=== PATIENT | female | born 1945 | race Caucasian/White ===

== ENCOUNTER → 2024-02-12 13:58 | Outpatient (REF) | payer MEDICARE, SELFPAY | LOC: WDC 13:58 | PROVIDERS: ATTENDING PHYSICIAN Family Medicine | DX: Z12.31 Encounter for screening mammogram for malignant neoplasm of breast (principal) | CPT/HCPCS: 77063; 77067 ==

== ENCOUNTER → 2025-03-16 13:36 | Outpatient (REF) | payer MEDICARE, SELFPAY | LOC: WDC 13:36 | PROVIDERS: ATTENDING PHYSICIAN Family Medicine | DX: Z12.31 Encounter for screening mammogram for malignant neoplasm of breast (principal) | CPT/HCPCS: 77063; 77067 ==

== ENCOUNTER → 2025-05-23 15:04 | Outpatient (REF) | payer MEDICARE, SELFPAY | LOC: RAD 15:04 | PROVIDERS: ATTENDING PHYSICIAN Nurse Practitioner Family; FAMILY PHYSICIAN Family Medicine | DX: J45.41 Moderate persistent asthma with (acute) exacerbation (principal) | CPT/HCPCS: 71046 ==